=== PATIENT | female | born 1985 | race Caucasian/White ===

== ENCOUNTER 2017-02-23 13:46 | Emergency (ER) | payer MEDICAID ==
[~2017-02-23] VITALS: Ht 165.1 cm; Wt 52.8 kg
[2017-02-23 14:11] VITALS: BP 119/73
--- NOTE | 2017-02-23 15:19 | NUR ---
Patient to [facility] at this time.
--- NOTE | 2017-02-23 15:20 | NUR ---
Patient being evaluated by physician.
--- NOTE | 2017-02-23 15:21 | NUR ---
PATIENT PRESENTS TO ED WITH C/O LT ARM PAIN 2/10 X 1 1/2 WKS; DENIES INJURY, N/V/D HX; DENIES RX; DENIES SKIN IS PINK/WARM/DRY; AAOX4 WITH EVEN AND STEADY GAIT; LUNGS CLEAR BL; HR EVEN AND REGULAR; PT DENIES ANY FEVER, CP, SOB, OR COUGH AT THIS TIME; PATIENT STATES LT ARM PAIN OF 2/10 AT THIS TIME; VSS; PATIENT POSITIONED FOR COMFORT; HOB ELEVATED; BEDRAILS UP X2; BED DOWN. ER MD MADE AWARE OF PT STATUS.
--- NOTE | 2017-02-23 15:46 | NUR ---
Patient discharged with v/s stable. Written and verbal after care instructions given and explained. Patient alert, oriented and verbalized understanding of instructions. Ambulatory with steady gait. All questions addressed prior to discharge. ID band removed. Patient advised to follow up with PMD. Rx of FLEXERIL given. Patient educated on indication of medication including possible reaction and side effects. Opportunity to ask questions provided and answered.
[2017-02-23 15:47] VITALS: BP 126/76
== END 2017-02-23 15:45 | disposition home or self-care (01) ==
LOC: MED 13:46
DX: M54.12 Radiculopathy, cervical region (principal)
CPT/HCPCS: 99283

== ENCOUNTER 2017-05-25 12:40 | Emergency (ER) | payer MEDICAID ==
[~2017-05-25] VITALS: Ht 162.6 cm; Wt 49.9 kg
[2017-05-25 12:48] VITALS: BP 119/78
--- NOTE | 2017-05-25 13:46 | NUR ---
PT REPORTS EPITAXSIS X 2 WEEKS, PROGRESSIVELY GETTING WORSE. NO ACTIVE BLEEDING AT THIS TIME. RESP EVEN AND UNLBAORED, ON RA@98%. DENIES NAUSEA/VOMITTING. DENIES FEVERS. ALSO REPORTS BRUSING EASILY AND STATES SHE'S WORRIED BECAUSE SHE WAS ON [employer] AND STATES "THIS COULD BE BAD". PT REASSURED. WAIITING FOR ER MD STEPHENS.
--- NOTE | 2017-05-25 14:52 | NUR ---
blood tech taking blood
--- NOTE | 2017-05-25 15:37 | NUR ---
no epitaxis noted, pt in nad.
[2017-05-25 15:44] LABS: BASOPHILS # (AUTO) 0.1 K/uL (0.00-0.22); BASOPHILS % (AUTO) 1.7 % (0.0-2.0); EOSINOPHILS % (AUTO) 0.4 % (0.0-4.0); HEMATOCRIT 41.8 % (36-48); LYMPHOCYTES # (AUTO) 1.7 K/uL (2.5-16.5); LYMPHOCYTES % (AUTO) 19.3 % (20.5-51.1); MEAN CORPUSCULAR HEMOGLOBIN 31 pg (27-31); MEAN CORPUSCULAR HGB CONC 34 g/dL (33-37); MEAN CORPUSCULAR VOLUME 91 fL (80-94); MONOCYTES # (AUTO) 0.6 K/uL (0.8-1.0); MONOCYTES % (AUTO) 6.9 % (1.7-9.3); NEUTROPHILS # (AUTO) 6.2 K/uL (1.8-7.7); NEUTROPHILS % (AUTO) 71.7 % (42.2-75.2); PLATELET COUNT (AUTO) 298 K/uL (140-450); RED BLOOD CELL COUNT(AUTO) 4.61 MIL/uL (4.20-5.40); WHITE BLOOD COUNT (AUTO) 8.6 K/uL (4.8-10.8)
[2017-05-25 15:45] LABS: BILIRUBIN,URINE NEGATIVE (NEGATIVE); BLOOD, URINE NEGATIVE (NEGATIVE); LEUKOCYTE ESTERASE ,URINE TRACE (NEGATIVE); NITRITE, URINE NEGATIVE (NEGATIVE); PH,URINE 7.5 (5.0-9.0); UGLUCOSE NEGATIVE (NEGATIVE)
[2017-05-25 15:59] LABS: ANION GAP 18.3 (8-16); CARBON DIOXIDE 24.5 mmol/L (21-32); CREATININE 0.6 mg/dL (0.6-1.3); POTASSIUM 3.8 mmol/L (3.5-5.1)
[2017-05-25 16:02] LABS: PROTHROMBIN TIME 11.7 secs (10.8-13.4)
[2017-05-25 16:05] LABS: ALBUMIN 4.6 g/dL (3.4-5.0); TOTAL BILIRUBIN 0.8 mg/dL (0.0-1.0)
[2017-05-25 16:14] LABS: APPEARANCE,URINE CLEAR (CLEAR)
[2017-05-25 16:15] LABS: COLOR,URINE STRAW (YELLOW); RBC,URINE NONE SEEN /HPF (0-5); WBC,URINE 0-5 (RARE) /HPF (0-5)
--- NOTE | 2017-05-25 16:50 | NUR ---
waiitng for disposition
[2017-05-25 17:24] VITALS: BP 107/69
--- NOTE | 2017-05-25 17:25 | NUR ---
Patient discharged with v/s stable. Written and verbal after care instructions given and explained. Patient alert, oriented and verbalized understanding of instructions. Ambulatory with steady gait. All questions addressed prior to discharge. ID band removed. Patient advised to follow up with PMD. Rx of SALINE MOISTURIZING NASAL MIST given. Patient educated on indication of medication including possible reaction and side effects. Opportunity to ask questions provided and answered.
== END 2017-05-25 17:25 | disposition home or self-care (01) ==
LOC: MED 12:40
DX: J30.9 Allergic rhinitis, unspecified (principal)
CPT/HCPCS: 36415; 80053; 81001; 84703; 85025; 85610; 85730; 99284

== ENCOUNTER 2019-12-31 11:22 | Emergency (ER) | payer MEDICAID, OTHER ==
[~2019-12-31] VITALS: Ht 165.1 cm; Wt 51.7 kg
[2019-12-31 11:26] VITALS: BP 114/70
--- NOTE | 2019-12-31 11:52 | NUR ---
34 Y/O FEMALE C/O RIGHT LOWER QUADRANTS PAIN THAT IS ACUTE ON CHRONIC (7 MONTHS) AND HAS GOTTEN WORSE YESTERDAY WOOD PILER HER 8/10 PAIN, DULL PRESSURE PAIN. DENIES ANY N/V/D. DENIES ANY BACK PAIN. DENIES DYSURIA. PATIENT STATES TYLENOL IS INEFFECTIVE. NKA
[2019-12-31 13:02] LABS: BASOPHILS % (AUTO) 0.4 % (0.0-2.0); EOSINOPHILS % (AUTO) 0.2 % (0.0-4.0); HEMATOCRIT 39.1 % (36-48); HEMOGLOBIN 13.1 g/dL (12.0-16.0); LYMPHOCYTES # (AUTO) 1.2 K/uL (2.5-16.5); LYMPHOCYTES % (AUTO) 18.6 % (20.5-51.1); MEAN CORPUSCULAR HEMOGLOBIN 31 pg (27-31); MEAN CORPUSCULAR HGB CONC 34 g/dL (33-37); MEAN CORPUSCULAR VOLUME 92.1 fL (80-94); MONOCYTES # (AUTO) 0.3 K/uL (0.8-1.0); MONOCYTES % (AUTO) 5.2 % (1.7-9.3); NEUTROPHILS % (AUTO) 75.6 % (42.2-75.2); PLATELET COUNT (AUTO) 253 K/uL (140-450); RED BLOOD CELL COUNT(AUTO) 4.25 MIL/uL (4.20-5.40); RED CELL DISTRIBUTION WIDTH 12.7 % (11.6-13.7); WHITE BLOOD COUNT (AUTO) 6.6 K/uL (4.8-10.8)
[2019-12-31 13:16] LABS: ANION GAP 13.6 (8-16); CARBON DIOXIDE 26.4 mmol/L (21-32); CREATININE 0.5 mg/dL (0.6-1.3); TOTAL BILIRUBIN 0.6 mg/dL (0.0-1.0)
--- NOTE | 2019-12-31 13:43 | NUR ---
PATIENT TAKEN TO CT SCAN
--- NOTE | 2019-12-31 13:51 | NUR ---
PT BACK FROM CT SCAN
[2019-12-31 14:42] LABS: BILIRUBIN,URINE NEGATIVE (NEGATIVE); BLOOD, URINE NEGATIVE (NEGATIVE); LEUKOCYTE ESTERASE ,URINE TRACE (NEGATIVE); NITRITE, URINE NEGATIVE (NEGATIVE); UGLUCOSE NEGATIVE (NEGATIVE)
[2019-12-31 14:44] LABS: APPEARANCE,URINE HAZY (CLEAR)
[2019-12-31 14:49] LABS: RBC,URINE NONE SEEN /HPF (0-5); URIC ACID CRYSTALS,URINE 0-10 /HPF (None Seen); WBC,URINE NONE SEEN /HPF (0-5)
[2019-12-31 14:50] LABS: COLOR,URINE STRAW (YELLOW)
[2019-12-31 15:09] VITALS: BP 114/70
--- NOTE | 2019-12-31 15:09 | NUR ---
Patient discharged with v/s stable. Written and verbal after care instructions given and explained. Patient alert, oriented and verbalized understanding of instructions. Ambulatory with steady gait. All questions addressed prior to discharge. ID band removed. Patient advised to follow up with PMD. Rx of flagyl, cipro given. Patient educated on indication of medication including possible reaction and side effects. Opportunity to ask questions provided and answered.
== END 2019-12-31 15:09 | disposition home or self-care (01) ==
LOC: MED 11:22
DX: K52.9 Noninfective gastroenteritis and colitis, unspecified (principal)
CPT/HCPCS: 36415; 74177; 80053; 81001; 81025; 83690; 85025; 99285; Q9967